=== PATIENT | female | born 1960 | race American Indian/Alaskan Native ===

== ENCOUNTER 2022-12-08 14:08 | Emergency (ER) | payer OTHER ==
[2022-12-08] MEDS ORDERED: Iopamidol 612 MG/ML 100 ML Bottle IVPUSH ONE (15:16)
[2022-12-08] MEDS ORDERED: Sodium Chloride 0.9% 10 ML Syringe FLUSH ONE (15:16)
[2022-12-08] MEDS: Sodium Chloride 0.9% 10 ML Syringe FLUSH PRN ×2 (16:15→16:39)
[2022-12-08] MEDS ORDERED: Acetaminophen 325 MG Tab PO ONE (16:54)
[2022-12-08 16:58] LABS: ESTIMATED GFR 97 mL/min (>60)
== END 2022-12-08 17:26 | disposition home or self-care (01) ==
LOC: JD.ED 14:08
DX: R13.10 Dysphagia, unspecified (principal); Z72.0 Tobacco use
CPT/HCPCS: 36415; 70491; 80053; 84443; 85025; 86140; 99284; A9270; J3490; Q9967